=== PATIENT | female | born 1970 | race African-American/Black ===

== ENCOUNTER 2021-05-20 01:17 | Day surgery (SDC) | payer BC, SELFPAY ==
[2021-05-08 14:12] VITALS: BMI 29.5
[2021-05-20 10:02] VITALS: BP 138/83; PULSE 86; RESP 16; TEMP 36.1; O2SAT 100; BMI 29.5
[2021-05-20] MEDS: LACTATED RINGERS 1,000 ML 150 ML IV CONT (10:05)
--- NOTE | 2021-05-20 10:19 | P.PNAN_ITS ---
Anes - Initial Pre Proc Eval Procedure: Operation Date: 05/20/21 10:30 Proposed Procedures p Screening Colonoscopy - Roddy Fernández MD Date/Time: 05/20/21 10:19 Surgeon: Roddy Fernández MD Pre Op Diagnosis: neoplasm screening Patient Data Age: 51 Gender: F Height: 1.63 m Weight: 78 kg Last Vital Signs Temp 36.1 C L 05/20/21 10:02 Pulse 86 05/20/21 10:02 Resp 16 05/20/21 10:02 BP 138/83 05/20/21 10:02 Pulse Ox 100 05/20/21 10:02 Allergies Allergy/AdvReac Type Severity Reaction Status Date / Time No Known Allergies Allergy Verified 05/20/21 09:58 Home Medications Medication Instructions Recorded Confirmed Type Lacto.acidophilus-Bif.animalis 1 cap PO DAILY 05/08/21 05/08/21 History [Daily Probiotic] ascorbic acid (vitamin C) 500 mg PO DAILY 05/08/21 05/08/21 History biotin 1,000 mcg PO DAILY 05/08/21 05/08/21 History chlorthalidone 25 mg PO DAILY 05/08/21 05/08/21 History cholecalciferol (vitamin D3) 25 mcg PO DAILY 05/08/21 05/08/21 History [Vitamin D3] famotidine [Pepcid] 20 mg PO DAILY 05/08/21 05/08/21 History lisinopril 20 mg PO DAILY 05/08/21 05/08/21 History magnesium 100 mg PO DAILY 05/08/21 05/08/21 History trazodone 100 mg PO HS PRN 05/08/21 05/08/21 History zinc 50 mg PO DAILY 05/08/21 05/08/21 History Patient hx anesthesia problems: none Family hx anesthesia problems: none Results Review: All pre-operative results and documents have been reviewed as part of the pre-operative evaluation. FORMERLY [facility], [facility] Past Medical History Medical History (Updated 05/20/21 @ 10:19 by Kamar Stahl MD) HTN (hypertension) Hyperlipidemia Surgical History Surgical History (Updated 05/20/21 @ 10:21 by Kamar Stahl MD) Hx of breast reduction, elective Social History Social History Smoking status: Never smoker Alcohol intake: current Drinks per week: 2 Living arrangements: with family Spiritual care concerns: No Anes - Eval Final PreProcedure Day of Procedure 05/20/21 10:19 Patient weight: overweight Heart: regular rate and rhythm Lungs: clear to auscultation Airway: Mallampati scale class II Neurological: alert and oriented Last oral intake: >/= 8 hours ASA classification: II Emergent: no Anesthetic plan: proceed Anesthesia type and monitoring: general GIVS and standard monitoring Results Review: All pre-operative results and documents have been reviewed as part of the pre-operative evaluation. Informed Consent: The patient's anesthetic plan and its attendant risks and benefits were discussed with the patient/family/POA. Questions were solicited and answers provided to the satisfaction of the patient/family/POA.
--- NOTE | 2021-05-20 10:37 | PM.HPGS ---
History of Present Illness History of Present Illness Consent: Risks, benefits, and alternatives have been discussed and questions answered. Patient agrees to proceed with procedure. Chief complaint: neoplasm screening Narrative: Mary Prasad is a 51 year old female here for first screening colonoscopy Review of Systems Constitutional: Constitutional: Denies headache(s) and Denies weakness Eyes: Eyes: Denies blurry vision ENT: Reports Normal hearing present, Denies headache(s) and Denies neck pain Cardiovascular: Cardiovascular: Denies chest pain and Denies dyspnea Respiratory: Respiratory: Denies dyspnea Gastrointestinal: Gastrointestinal: Reports no additional gastrointestinal complaints Genitourinary: Genitourinary: Denies dysuria Musculoskeletal: Musculoskeletal: Denies neck pain Integumentary/Breasts: Skin/Breast: Denies dry skin Neurologic: Reports Normal hearing present, Denies headache(s) and Denies weakness Psychiatric: Psychiatric: Denies anxiety Endocrine: Endocrine: Denies change in body appearance Hematologic/Lymphatic: Hematologic/Lymphatic: Denies easy bleeding Allergic/Immunologic: Allergic/Immunologic: Denies urticaria FORMERLY [facility] Past Medical History Medical History (Updated 05/20/21 @ 10:37 by Roddy Fernández MD) Colon cancer screening HTN (hypertension) Hyperlipidemia Surgical History Surgical History (Updated 05/20/21 @ 10:21 by Kamar Stahl MD) Hx of breast reduction, elective Social History Social History Smoking status: Never smoker Alcohol intake: current Drinks per week: 2 Living arrangements: with family Spiritual care concerns: No Meds Home Medications and Allergies Home Medications Medication Instructions Recorded Confirmed Type Lacto.acidophilus-Bif.animalis 1 cap PO DAILY 05/08/21 05/08/21 History [Daily Probiotic] ascorbic acid (vitamin C) 500 mg PO DAILY 05/08/21 05/08/21 History biotin 1,000 mcg PO DAILY 05/08/21 05/08/21 History chlorthalidone 25 mg PO DAILY 05/08/21 05/08/21 History cholecalciferol (vitamin D3) 25 mcg PO DAILY 05/08/21 05/08/21 History [Vitamin D3] famotidine [Pepcid] 20 mg PO DAILY 05/08/21 05/08/21 History lisinopril 20 mg PO DAILY 05/08/21 05/08/21 History magnesium 100 mg PO DAILY 05/08/21 05/08/21 History trazodone 100 mg PO HS PRN 05/08/21 05/08/21 History zinc 50 mg PO DAILY 05/08/21 05/08/21 History Allergies Allergy/AdvReac Type Severity Reaction Status Date / Time No Known Allergies Allergy Verified 05/20/21 09:58 Vital Signs Vital Signs - 24 hr 05/20/21 10:02 Temperature 97 F L Pulse Rate 86 Respiratory Rate 16 Blood Pressure 138/83 Pulse Oximetry 100 Exam Const: General: comfortable and no acute distress HENMT: General nose exam: Normal nares present Eyes: General: appearance normal, both eyes and all related structures Neck: Neck: no JVD Resp: Auscultation: clear to auscultation bilaterally Cardio: Rate: regular rate Rhythm: regular rhythm GI: Inspection: non-distended GI Palp: Yes Soft to palpation Skin: General skin exam: normal color Neuro: General: gait normal Speech: normal speech Extrem: General: normal to inspection Psych: Mental Status: mental status grossly normal Assessment and Plan Assessment and plan (1) Colon cancer screening: Code(s): Z12.11 - Encounter for screening for malignant neoplasm of colon Status: Acute Assessment and Plan: colonoscopy
[2021-05-20 11:08] VITALS: BP 116/78; PULSE 84; RESP 20; O2SAT 100
[2021-05-20 11:18] VITALS: BP 126/77; PULSE 78; RESP 20; O2SAT 100
[2021-05-20 11:28] VITALS: BP 134/85; PULSE 79; RESP 17; O2SAT 100
== END 2021-05-20 11:36 | disposition home or self-care (01) ==
PROVIDERS: PCP Family Medicine; Visit Provider Internal Medicine Gastroenterology
PROC: 0DJD8ZZ Inspection of Lower Intestinal Tract, Via Natural or Artificial Opening Endoscopic (ICD-10-PCS; CPT 45378; principal; 2021-05-20 10:30)
DX: Z12.11 Encounter for screening for malignant neoplasm of colon (principal); K64.8 Other hemorrhoids; I10 Essential (primary) hypertension; E78.5 Hyperlipidemia, unspecified
CPT/HCPCS: 45378; J2704; J7120

== ENCOUNTER 2022-02-19 15:17 | Outpatient (CLI) | payer BC, SELFPAY ==
[2022-02-23 01:37] LABS: Estradiol, Ultrasensitive 6 pg/mL
[2022-02-23 04:23] LABS: FSH 74.3 mIU/mL (***)
== END 2022-02-19 15:18 | disposition home or self-care (01) ==
LOC: ANHLAB 15:18
PROVIDERS: PCP Family Medicine; Visit Provider Obstetrics & Gynecology
DX: N95.1 Menopausal and female climacteric states (principal)
CPT/HCPCS: 36415; 82670; 83001